=== PATIENT | female | born 1945 | race Hispanic/Latino ===

== ENCOUNTER 2017-10-05 08:03 | Emergency (ER) | payer MEDICARE ==
[2017-10-05] MEDS ORDERED: Amlodipine 5 MG TAB ONE (09:03)
[2017-10-05] MEDS ORDERED: Lisinopril 10 MG TAB ONE (09:03)
[2017-10-05] MEDS ORDERED: Acetaminophen/Codeine 30-300mg Tablet ONE (09:27)
--- NOTE | 2017-10-05 10:10 | RAD ---
CHEST 1 VIEW RIGHT RIBS 2 VIEWS: Date: 10/05/17 HISTORY: 72-year-old female with history of injury. FINDINGS: Postop midline sternotomy and left ICD changes in the chest with atherosclerosis of the aorta. No elsi dence for an overt acute right rib fracture. No pneumothorax or pleural effusion. IMPRESSION: No significant acute process in the chest. Atherosclerosis of aorta. Postop midline sternotomy and IC D changes. No evidence for overt acute rib fracture, pneumothorax, or pleural effusion. POS: [facility]
== END 2017-10-05 09:35 | disposition home or self-care (01) ==
LOC: MADERS 08:03
DX: S20.211A Contusion of right front wall of thorax, initial encounter (principal); I10 Essential (primary) hypertension; E11.9 Type 2 diabetes mellitus without complications; Z79.899 Other long term (current) drug therapy; Z79.84 Long term (current) use of oral hypoglycemic drugs; Z86.73 Personal history of transient ischemic attack (TIA), and cerebral infarction without residual deficits; W19.XXXA Unspecified fall, initial encounter; Y92.009 Unspecified place in unspecified non-institutional (private) residence as the place of occurrence of the external cause
CPT/HCPCS: 36416

== ENCOUNTER 2020-07-03 19:09 | Emergency (ER) | payer MEDICARE ==
[2020-07-03 20:24] LABS: #Basophils 0.1 thou/uL (0.0-0.2); #Lymphocytes 2.6 thou/uL (1.20-3.40); #Monocytes 0.4 thou/uL (0.11-0.59); #Neutrophils 4.9 thou/uL (1.40-6.50); %Basophils 0.7 % (0.0-1.0); %Eosinophils 0.5 % (0.0-10.0); %Lymphocytes 32.3 % (21.0-51.0); %Monocytes 4.6 % (0.0-10.0); %Neutrophils 61.9 % (42.0-75.0); Hemoglobin 11.8 g/dL (12.0-16.0); Mean Corpuscular HGB CONC 32.3 g/dL (32.0-36.0); Mean Corpuscular Hemoglobin 27.4 pg (27.0-31.0); Mean Corpuscular Volume 85.1 fL (78.0-98.0); Platelet Count 178 thou/uL (130-400); RBC Distribution Width 14.4 % (11.5-14.5); Red Blood Cell (RBC) Count 4.31 mill/uL (4.20-5.40)
[2020-07-03 20:34] LABS: INR-International Normal Ratio 0.9; PTT 27.5 sec (22.9-36.1); Prothrombin Time 12.5 sec (12.0-14.7)
[2020-07-03 20:44] LABS: ALT (SGPT) 16 U/L (8-55); AST (SGOT) 19 U/L (5-34); Albumin 4.2 g/dL (3.4-4.8); Alkaline Phosphatase 74 U/L (40-110); Anion Gap 16 mmol/L (10-20); BUN (Urea Nitrogen) 16 mg/dL (9.8-20.1); Bilirubin, Total 0.6 mg/dL (0.2-1.2); Calc. Creatinine Clearance 0 mL/min (70-130); Carbon Dioxide 25 mmol/L (23-31); Chloride 104 mmol/L (98-107); Globulin 3.9 g/dL (2.4-3.5); Glucose 77 mg/dL (83-110); Potassium 4.3 mmol/L (3.5-5.1); Protein, Total 8.1 g/dL (5.8-8.1); Sodium 141 mmol/L (136-145)
== END 2020-07-03 23:41 | disposition short-term general hospital (02) ==
LOC: MADERS 19:09
DX: S06.5X0A Traumatic subdural hemorrhage without loss of consciousness, initial encounter (principal); S02.2XXA Fracture of nasal bones, initial encounter for closed fracture; E11.9 Type 2 diabetes mellitus without complications; E03.9 Hypothyroidism, unspecified; E78.5 Hyperlipidemia, unspecified; I10 Essential (primary) hypertension; M19.90 Unspecified osteoarthritis, unspecified site; W18.30XA Fall on same level, unspecified, initial encounter
CPT/HCPCS: 70450; 70486; 71045; 72125; 80053; 84484; 85025; 85610; 85730; 93005; 94760

== ENCOUNTER 2021-08-23 19:15 | Emergency (ER) | payer OTHER, MEDICARE ==
[2021-08-23 20:58] LABS: #Basophils 0.1 thou/uL (0.0-0.2); #Eosinphils 0.1 thou/uL (0.0-0.7); #Lymphocytes 2.2 thou/uL (1.20-3.40); #Monocytes 0.4 thou/uL (0.11-0.59); #Neutrophils 6.1 thou/uL (1.40-6.50); %Basophils 0.6 % (0.0-1.0); %Eosinophils 1.6 % (0.0-10.0); %Lymphocytes 24.7 % (21.0-51.0); %Monocytes 4.4 % (0.0-10.0); %Neutrophils 68.6 % (42.0-75.0); Hemoglobin 10.9 g/dL (12.0-16.0); Mean Corpuscular HGB CONC 30.6 g/dL (32.0-36.0); Mean Corpuscular Hemoglobin 26.4 pg (27.0-31.0); Mean Corpuscular Volume 86.4 fL (78.0-98.0); Mean Platelet Volume 10.2 fL (7.4-10.4); Platelet Count 152 thou/uL (130-400); RBC Distribution Width 16.6 % (11.5-14.5); Red Blood Cell (RBC) Count 4.12 mill/uL (4.20-5.40); White Blood Cell (WBC) Count 8.9 thou/uL (4.8-10.8)
[2021-08-23] MEDS ORDERED: Sodium Chloride 0.9% 500 ML ONE (21:01)
[2021-08-23 21:19] LABS: ALT (SGPT) 10 U/L (8-55); AST (SGOT) 22 U/L (5-34); Albumin 4.2 g/dL (3.4-4.8); Alkaline Phosphatase 68 U/L (40-110); Anion Gap 16 mmol/L (10-20); BUN (Urea Nitrogen) 21 mg/dL (9.8-20.1); Bilirubin, Total 0.6 mg/dL (0.2-1.2); Calc. Creatinine Clearance 0 mL/min (70-130); Calcium 9.4 mg/dL (7.8-10.44); Carbon Dioxide 23 mmol/L (23-31); Chloride 105 mmol/L (98-107); Globulin 3.8 g/dL (2.4-3.5); Glucose 115 mg/dL (83-110); Lipase 26 U/L (8-78); Sodium 140 mmol/L (136-145)
[2021-08-23 21:30] LABS: Bilirubin Negative (Negative); Blood, Urine Negative (Negative); Clarity Slightly Cloudy (Clear); Glucose, Urine (Dipstick) Negative (Negative); Ketone, Urine Negative (Negative); Leukocyte Negative (Negative); Nitrite Negative (Negative); Protein, Urine (Dipstick) Trace mg/dL (Neg-Trace); Urobilinogen 0.2 mg/dL (Less than 2)
== END 2021-08-23 23:50 | disposition home or self-care (01) ==
LOC: MADERS 19:15
DX: S29.012A Strain of muscle and tendon of back wall of thorax, initial encounter (principal); S30.1XXA Contusion of abdominal wall, initial encounter; S20.211A Contusion of right front wall of thorax, initial encounter; D64.9 Anemia, unspecified; E11.9 Type 2 diabetes mellitus without complications; E03.9 Hypothyroidism, unspecified; E78.5 Hyperlipidemia, unspecified; I10 Essential (primary) hypertension; Z79.899 Other long term (current) drug therapy; V89.2XXA Person injured in unspecified motor-vehicle accident, traffic, initial encounter
CPT/HCPCS: 71260; 74177; 80053; 81003; 82962; 83690; 85025; G0390; 36416; J7030